=== PATIENT | female | born 1960 | race Caucasian/White ===

== ENCOUNTER → 2019-11-04 | Outpatient (CLI) | payer SELFPAY | END | disposition home or self-care (01) | LOC: OIH 14:15 | PROVIDERS: ATTEND Family Medicine | DX: J40 Bronchitis, not specified as acute or chronic (principal); R07.81 Pleurodynia; R91.8 Other nonspecific abnormal finding of lung field | CPT/HCPCS: 71046; 71100 ==

== ENCOUNTER → 2019-12-23 | Outpatient (CLI) | payer SELFPAY | END | disposition home or self-care (01) | LOC: OIH 15:17 | PROVIDERS: ATTEND Family Medicine | DX: M17.12 Unilateral primary osteoarthritis, left knee (principal); R26.9 Unspecified abnormalities of gait and mobility | CPT/HCPCS: 73560; 73562 ==